=== PATIENT | male | born 1965 | race Caucasian/White ===

== ENCOUNTER 2020-04-22 21:38 | Inpatient (IN) | payer MEDICAID ==
[2020-04-22 23:17] VITALS: BP 106/60
[2020-04-22] MEDS ORDERED: Acetaminophen 500 MG TAB PO PRN (23:45)
[2020-04-22] MEDS ORDERED: Magnesium Hydroxide (MOM) 30 mL UDC PO PRN (23:45)
[2020-04-22] MEDS ORDERED: Maalox 30 mL Cup PO PRN (23:45)
[2020-04-23 10:12] LABS: POTASSIUM SERUM 4.4 mmol/L (3.5-5.1)
[2020-04-23 10:13] LABS: BILIRUBIN,TOTAL 0.6 mg/dL (0.0-1.0); CREATININE - SERUM 1.07 mg/dL (0.70-1.30); TOTAL PROTEIN,SERUM 6.8 g/dL (6.4-8.3)
[2020-04-23 10:14] LABS: CHOLESTEROL 157 mg/dL (<200); LDL CHOLESTEROL 99 mg/dL (0-129); TRIGLYCERIDES 64 mg/dL (30-150)
[2020-04-23 10:44] LABS: % NEUTROPHILS 70.2 % (40-70); BASOPHILS % (AUTO) 0.5 % (0.0-2.0); EOSINOPHILS % (AUTO) 2.4 % (0-4); HEMATOCRIT 39.4 % (36-54); HEMOGLOBIN 13.7 g/dL (14.0-18.0); MEAN CORPUSCULAR HEMOGLOBIN 30 pg (27-31); MEAN CORPUSCULAR HGB CONC 35 % (32-36); MEAN CORPUSCULAR VOLUME 87 fL (79.0-98.0); MONOCYTES % (AUTO) 5.9 % (1.7-9.3); PLATELET COUNT 230 K/uL (130-430); RED BLOOD COUNT 4.55 MIL/uL (4.2-6.2); RED CELL DISTRIBUTION WIDTH 13.4 % (9.0-15.0); WHITE BLOOD COUNT 6.2 K/uL (4.8-10.8)
[2020-04-23 10:45] LABS: BLOOD, URINE NEGATIVE (NEGATIVE); GLUCOSE,URINE 1+ (NEGATIVE); URINE BILIRUBIN NEGATIVE (NEGATIVE); URINE CLARITY CLEAR (CLEAR); URINE COLOR YELLOW (YELLOW); URINE KETONE NEGATIVE (NEGATIVE); URINE PH 5.5 (5.0-8.0)
[2020-04-23 10:45] LABS: EOSINOPHILS # (AUTO) 0.2 K/uL (0.0-0.4); LYMPHOCYTES # (AUTO) 1.3 K/uL (1.0-5.5); MONOCYTES # (AUTO) 0.4 K/uL (0.0-1.0); NEUTROPHILS # (AUTO) 4.3 K/uL (1.8-7.7)
[2020-04-23 10:46] LABS: LEUKOCYTE ESTERASE ,URINE NEGATIVE (NEGATIVE); PROTEIN URINE NEGATIVE (NEGATIVE); URINE NITRATE NEGATIVE (NEGATIVE); UROBILINOGEN,URINE 0.2 (0.2-1.0)
[2020-04-23] MEDS ORDERED: GLUCAGON HCl 1 MG KIT IM PRN (13:37)
--- NOTE | 2020-04-23 14:32 | History & Physical ---
ADMIT DATE: 04/23/2020 INTERNAL MEDICINE HISTORY OF PRESENT ILLNESS: We have a 55-year-old male with diabetes, hypertension, who is here for suicidal ideations. No nausea, vomiting, abdominal pain, diarrhea. PAST MEDICAL HISTORY: Diabetes, hypertension. PAST SURGICAL HISTORY: None. MEDICATIONS: List reviewed. ALLERGIES: None. SOCIAL HISTORY: Tobacco, IV drugs, ETOH negative. PHYSICAL EXAMINATION: VITAL SIGNS: Temperature is 98.3, pulse 84, respirations 20, blood pressure is 125/75. HEENT: Normocephalic, atraumatic head exam. NECK: Supple. CARDIOVASCULAR: Regular rate and rhythm. LUNGS: Decreased breath sounds. ABDOMEN: Soft, nontender. EXTREMITIES: No edema, cyanosis or clubbing. CN 2-12 grossly intact ASSESSMENT AND PLAN: 1. Diabetes. 2. Hypertension. 3. Suicidal ideation. The patient will be started on Lantus sliding scale insulin. The patient will get metformin and glipizide. JOB# [id number] [facility]
[2020-04-23] MEDS: INSULIN LISPRO SLIDING SCALE 100 UNITS/ML UNIT SUBQ SCH ×2 (16:20→20:37)
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
[2020-04-24] MEDS: INSULIN LISPRO SLIDING SCALE 100 UNITS/ML UNIT SUBQ SCH ×4 (06:34→20:48)
[2020-04-24 21:49] LABS: AMPHETAMINE URINE NEGATIVE (NEGATIVE); BARBITURATES URINE NEGATIVE (NEGATIVE); PHENCYCLIDINE (PCP) URINE NEGATIVE (NEGATIVE)
[2020-04-24 21:50] LABS: BENZODIAZEPINES QUAL URINE NEGATIVE (NEGATIVE); CANNABINOID THC NEGATIVE (NEGATIVE); COCAINE METABOLITE QUAL URINE NEGATIVE (NEGATIVE); METHADONE URINE NEGATIVE (NEGATIVE); METHAMPHETAMINES QUAL URINE NEGATIVE (NEGATIVE); OPIATES (MORPHINE) QUAL. URINE NEGATIVE (NEGATIVE); TRICYCLICS (TCA) QUAL. URINE NEGATIVE (NEGATIVE)
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
[2020-04-25] MEDS: INSULIN LISPRO SLIDING SCALE 100 UNITS/ML UNIT SUBQ SCH ×4 (06:44→21:13)
--- NOTE | 2020-04-25 11:15 | Progress Notes ---
DATE: 04/25/2020 SUBJECTIVE: A 55-year-old male, currently at [facility], for suicidal ideations, depressed for the past 2 months, tried to harm himself, multiple hospitalizations. Patient is homeless for quite some time. Unfortunately, when I go to talk to him, he does not want to engage with me, just looks at me, opens his eyes and goes back to sleep, apparently given Ambien last night. Staff noting A and O x 4, not really providing much information to the staff. Apparently, had an infected toe. Fair sleep after the Ambien and fair appetite. No overt aggressive behaviors, mostly withdrawn to self, irritated at times, using wheelchair for mobility. ASSESSMENT: The patient is symptomatic, ongoing safety concerns, hard to assess thought processes, refusing to speak with me, but ongoing behavioral disturbances, concerns for suicidal ideation. PLAN: Given how depressed and withdrawn he is, we will continue to monitor. Medications reviewed. Labs reviewed. Vitals reviewed. JOB# [id number]
[2020-04-26] MEDS: INSULIN LISPRO SLIDING SCALE 100 UNITS/ML UNIT SUBQ SCH ×4 (06:56→21:20)
--- NOTE | 2020-04-26 12:22 | Internal Medicine Prog Note ---
Internal Medicine Subjective - Subjective Service Date: 04/26/20 Patient seen and examined:: without staff Per staff patient has:: no adverse event, no episodes of fall Internal Medicine Objective - Results Result Diagrams: 04/23/20 09:08 04/23/20 09:08 Recent Labs: Laboratory Last Values WBC 6.2 K/uL (4.8-10.8) 04/23/20 09:08 RBC 4.55 MIL/uL (4.2-6.2) 04/23/20 09:08 Hgb 13.7 g/dL (14.0-18.0) L 04/23/20 09:08 Hct 39.4 % (36-54) 04/23/20 09:08 MCV 87 fL (79.0-98.0) 04/23/20 09:08 MCH 30 pg (27-31) 04/23/20 09:08 MCHC 35 % (32-36) 04/23/20 09:08 RDW 13.4 % (9.0-15.0) 04/23/20 09:08 Plt Count 230 K/uL (130-430) 04/23/20 09:08 MPV 8.8 fl (7.4-10.4) 04/23/20 09:08 Neut % (Auto) 70.2 % (40-70) H 04/23/20 09:08 Lymph % (Auto) 21.0 % (20.5-51.5) 04/23/20 09:08 [place] % (Auto) 5.9 % (1.7-9.3) 04/23/20 09:08 Eos % (Auto) 2.4 % (0-4) 04/23/20 09:08 Baso % (Auto) 0.5 % (0.0-2.0) 04/23/20 09:08 Neut # (Auto) 4.3 K/uL (1.8-7.7) 04/23/20 09:08 Lymph # (Auto) 1.3 K/uL (1.0-5.5) 04/23/20 09:08 [place] # (Auto) 0.4 K/uL (0.0-1.0) 04/23/20 09:08 Eos # (Auto) 0.2 K/uL (0.0-0.4) 04/23/20 09:08 Baso # (Auto) 0.0 K/uL (0.0-0.2) 04/23/20 09:08 Sodium 130 mmol/L (136-145) L 04/23/20 09:08 Potassium 4.4 mmol/L (3.5-5.1) 04/23/20 09:08 Chloride 100 mmol/L (98-107) 04/23/20 09:08 Carbon Dioxide 31 mmol/L (23-29) H 04/23/20 09:08 Anion Gap 3 (5-15) L 04/23/20 09:08 BUN 24 mg/dL (8-21) H 04/23/20 09:08 Creatinine 1.07 mg/dL (0.70-1.30) 04/23/20 09:08 Glucose 223 mg/dL (70-99) H 04/23/20 09:08 POC Glucose 217 MG/DL (70 - 105) H 04/26/20 06:02 Hemoglobin A1c 9.0 % (4.8-5.6) H 04/23/20 09:08 Calcium 9.0 mg/dL (8.4-10.2) 04/23/20 09:08 Total Bilirubin 0.6 mg/dL (0.0-1.0) 04/23/20 09:08 AST 14 U/L (10-37) 04/23/20 09:08 ALT 28 U/L (12-78) 04/23/20 09:08 Alkaline Phosphatase 84 U/L (46-116) 04/23/20 09:08 Total Protein 6.8 g/dL (6.4-8.3) 04/23/20 09:08 Albumin 3.1 g/dL (3.4-5.0) L 04/23/20 09:08 Triglycerides 64 mg/dL (30-150) 04/23/20 09:08 Cholesterol 157 mg/dL (<200) 04/23/20 09:08 LDL Cholesterol 99 mg/dL (0-129) 04/23/20 09:08 HDL Cholesterol 50 mg/dL (>45) 04/23/20 09:08 Urine Color YELLOW (YELLOW) 04/23/20 02:26 Urine Clarity CLEAR (CLEAR) 04/23/20 02:26 Urine pH 5.5 (5.0-8.0) 04/23/20 02:26 Ur Specific [place] 1.025 (1.005-1.030) 04/23/20 02:26 Urine Protein NEGATIVE (NEGATIVE) 04/23/20 02:26 Urine Ketones NEGATIVE (NEGATIVE) 04/23/20 02:26 Urine Blood NEGATIVE (NEGATIVE) 04/23/20 02:26 Urine Nitrate NEGATIVE (NEGATIVE) 04/23/20 02:26 Urine Bilirubin NEGATIVE (NEGATIVE) 04/23/20 02:26 Urine Urobilinogen 0.2 (0.2-1.0) 04/23/20 02:26 Ur Leukocyte Esterase NEGATIVE (NEGATIVE) 04/23/20 02:26 Urine Glucose 1+ (NEGATIVE) H 04/23/20 02:26 Urine Opiates Screen NEGATIVE (NEGATIVE) 04/24/20 16:40 Urine Methadone Screen NEGATIVE (NEGATIVE) 04/24/20 16:40 Ur Barbiturates Screen NEGATIVE (NEGATIVE) 04/24/20 16:40 Ur Tricyclics Screen NEGATIVE (NEGATIVE) 04/24/20 16:40 Ur Phencyclidine Scrn NEGATIVE (NEGATIVE) 04/24/20 16:40 Amphetamines Screen NEGATIVE (NEGATIVE) 04/24/20 16:40 U Methamphetamines Scrn NEGATIVE (NEGATIVE) 04/24/20 16:40 U Benzodiazepines Scrn NEGATIVE (NEGATIVE) 04/24/20 16:40 U Cocaine Metab Screen NEGATIVE (NEGATIVE) 04/24/20 16:40 U Cannabinoids Screen NEGATIVE (NEGATIVE) 04/24/20 16:40 - Physical Exam Vitals and I&O: Vital Signs Temp 97.3 F 04/26/20 05:54 Pulse 88 04/26/20 08:00 Resp 20 04/26/20 08:00 BP 124/68 04/26/20 08:00 Pulse Ox 96 04/26/20 05:54 Intake & Output 04/25/20 04/26/20 04/26/20 18:59 06:59 18:59 Intake Total 1200 240 Balance 1200 240 Intake: Oral 1200 240 Other: # Voids 2 # Bowel Movements 1 Active Medications: Current Medications Acetaminophen (Tylenol Extra Strength) 1,000 mg PO Q6H PRN PRN Reason: Pain (Moderate 4-6) Stop: 06/21/20 23:44 Acetaminophen (Tylenol) 650 mg PO Q4H PRN PRN Reason: Pain (Mild 1-3) Stop: 06/21/20 23:44 Last Admin: 04/26/20 09:37 Dose: 650 mg Al Hydrox/Mg Hydrox/Simethicone (Maalox) 30 ml PO Q4HR PRN PRN Reason: GI DISTRESS Stop: 06/21/20 23:44 Dextrose (Glutose 40%) 18.75 gm PO PRN PRN PRN Reason: BS Below 70 if tolerate po Stop: 06/22/20 13:36 Escitalopram Oxalate (Lexapro) 10 mg PO DAILY [facility]; Protocol Stop: 06/23/20 08:59 Last Admin: 04/26/20 09:36 Dose: 10 mg Gabapentin (Neurontin) 600 mg PO TID [facility] Stop: 06/22/20 13:59 Last Admin: 04/26/20 09:37 Dose: 600 mg Glipizide (Glucotrol) 10 mg PO BID [facility] Stop: 06/22/20 16:59 Last Admin: 04/26/20 09:37 Dose: 10 mg Glucagon (Glucagen) 1 mg IM PRN PRN PRN Reason: BS Below 70 if not tolerate po Stop: 06/22/20 13:36 Ibuprofen (Motrin) 400 mg PO Q4H PRN PRN Reason: Pain (Severe 7-10) Stop: 06/21/20 23:44 Last Admin: 04/26/20 10:32 Dose: 400 mg Insulin Human Lispro (Humalog Insulin Sliding Scale) 0 units SUBQ ACHS [facility]; Protocol Stop: 06/22/20 16:29 Last Admin: 04/26/20 11:38 Dose: 5 units Lorazepam (Ativan) 0.5 mg PO Q4HR PRN; Protocol PRN Reason: Anxiety Stop: 05/22/20 23:44 Magnesium Hydroxide (Milk Of Magnesia) 30 ml PO HS PRN PRN Reason: Constipation Metformin HCl (Glucophage) 1,000 mg PO BID [facility] Stop: 06/22/20 16:59 Last Admin: 04/26/20 09:37 Dose: 1,000 mg Zolpidem Tartrate (Ambien) 5 mg PO HS PRN PRN Reason: Insomnia Stop: 06/21/20 23:44 Last Admin: 04/25/20 22:17 Dose: 5 mg HEENT: NC/AT, PERRLA Neck: Supple Lungs: CTAB Cardiovascular: RRR, Normal S1, Normal S2 Abdomen: soft Extremities: clear Internal Medicine Assmt/Plan - Assessment Assessment: 1. DM/HTN 2. DM foot wound - Plan Plan: check [id number], cmp wound care consultation start keflex 500mg po tid x 7
[2020-04-27] MEDS: INSULIN LISPRO SLIDING SCALE 100 UNITS/ML UNIT SUBQ SCH ×4 (07:01→22:19)
--- NOTE | 2020-04-27 21:51 | Progress Notes ---
DATE: 04/27/2020 Case was discussed with staff of the patient and reviewed records. The patient isolates himself in the room. The patient came with suicidal ideation. The patient had multiple hospitalizations. The patient is homeless. The staff is working on placement. The patient apparently refused to talk to the psychiatrist over the weekend. The patient reported that he does have a place where he can go with a friend in [place]; however, he told me the same a few days ago and they were unable to verify it. He has not been acting aggressive. He has an infection in his toe. He sleeps well and eats well. He is isolating himself. Still concerned about his safety. No side effects to the medication, no sedation and no nausea. He is on Lexapro 10 mg a day. He is also on metformin, insulin, glipizide, and gabapentin. We will continue to work with the patient in group therapy, milieu therapy and adjust the medications as needed. JOB# [id number]
[2020-04-28] MEDS: INSULIN LISPRO SLIDING SCALE 100 UNITS/ML UNIT SUBQ SCH ×4 (06:38→20:50)
[2020-04-28] MEDS: Lactobacillus Rhamnosus GG 15 Billion CFU CAP.SPRINK PO SCH (09:03)
--- NOTE | 2020-04-28 09:25 | Progress Notes ---
DATE: 04/26/2020 SUBJECTIVE: A 55-year-old male, currently in the hospital, express suicidal ideations, feeling depressed, never tried to harm himself. Apparently homeless. History of meth use. The patient remains irritable, still depressed down, giving Dr. Dior different stories, not really wanting to interact with me, not wanting to repeat himself this morning. Staff noting he slept about 5 hours, demanding, manipulative, focused on pain medications. Testing limits. The patient guarded on exam, not really want to give me much information. Medications reviewed. Labs reviewed. Vitals were reviewed. ASSESSMENT: A 55-year-old male, limited, [id number], not really wanting to engage with me, irritable, ongoing behavioral disturbances and initially presenting due to SI. Ongoing concerns about suicide, suicidal ideations, still withdrawn, mostly keeps to self, depressed ___. DICTATION ENDS HERE JOB# [id number]
[2020-04-28 15:35] LABS: CREATININE - SERUM 1.06 mg/dL (0.70-1.30); POTASSIUM SERUM 4.7 mmol/L (3.5-5.1)
[2020-04-28 15:36] LABS: BILIRUBIN,TOTAL 0.4 mg/dL (0.0-1.0); CALCIUM SERUM 8.8 mg/dL (8.4-10.2); TOTAL PROTEIN,SERUM 6.7 g/dL (6.4-8.3)
--- NOTE | 2020-04-28 22:44 | Progress Notes ---
DATE: 04/28/2020 Case was discussed with staff of the patient, reviewed records. The patient continues to be depressed, overwhelmed. He is minimizing any intent to harm himself or anyone. He needs placement. He is giving different account different times, but he is not acting anyway dangerous, sleeping well, eating well. No side effects with the medication, no sedation, no nausea, no extrapyramidal symptoms. Reviewed lab work. He has a very high blood sugar on him. I will convey this to the medical doctor that is taking care of him and working on placement. We will continue to work with the patient in group therapy, milieu therapy, and adjust medications as needed. JOB# [id number]
[2020-04-29] MEDS: INSULIN LISPRO SLIDING SCALE 100 UNITS/ML UNIT SUBQ SCH (06:33)
[2020-04-29] MEDS: Lactobacillus Rhamnosus GG 15 Billion CFU CAP.SPRINK PO SCH (08:35)
--- NOTE | 2020-04-29 21:07 | Progress Notes ---
DATE: 04/29/2020 Case was discussed with staff of the patient, reviewed records. The patient today, he said that he will be going with his mother who lives next door, I am not sure if this is correct. I asked the staff to make sure they verify it. The patient so far has been compliant with the medication with no side effects, no sedation, no nausea, no extrapyramidal symptoms. Continues to minimize the events that led to this admission. His lab work show chemistry panel with low sodium, high carbon dioxide, high BUN, high blood sugar, the rest within normal range. No other lab work is available and will continue outpatient group therapy, milieu therapy, adjust medication as needed. JOB# [id number]
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
== END 2020-04-29 10:45 | disposition left against medical advice (07) | DRG 885 ==
LOC: GERO 22:20
PROVIDERS: ADMIT Psychiatry & Neurology Psychiatry; ATTEND Psychiatry & Neurology Psychiatry
DX: F33.9 Major depressive disorder, recurrent, unspecified (principal); E11.65 Type 2 diabetes mellitus with hyperglycemia; R45.851 Suicidal ideations; E44.1 Mild protein-calorie malnutrition; E87.1 Hypo-osmolality and hyponatremia; I10 Essential (primary) hypertension; F15.10 Other stimulant abuse, uncomplicated; Z53.29 Procedure and treatment not carried out because of patient's decision for other reasons; Z68.32 Body mass index [BMI] 32.0-32.9, adult
CPT/HCPCS: 36415-UA; 80053-TC; 80061-TC; 80307; 81003-TC; 82948-90; 83036-90; 85025-TC; G0410; Z7610